=== PATIENT | female | born 1985 | race Caucasian/White ===

== ENCOUNTER 2024-01-15 19:31 | Emergency (ER) | payer OTHER, SELFPAY ==
[2024-01-15 19:38] VITALS: BP 119/83
[2024-01-15 19:58] LABS: Urine Albumin Negative (Neg - Trace); Urine Bilirubin Negative (Negative); Urine Character Clear (Clear); Urine Color Yellow; Urine Glucose Negative (Negative); Urine Ketone Negative (Negative); Urine Leukocyte Trace (Negative); Urine Nitrite Negative (Negative); Urine Occult Blood Negative (Negative); Urine Urobilinogen Negative (Neg - 1+); Urine pH 6.5 (5.0-9.0)
[2024-01-15 19:59] LABS: % Basophils 0.1 % (0-2); % Eosinophils 4.3 % (0-6); % Immature Granulocytes 0.3 % (0-0.5); % Lymphocytes 26.8 % (20.5-51.1); % Monocytes 8.2 % (1.7-9.3); % Neutrophils 60.3 % (42.2-75.2); Absolute Eosinophils 0.4 10^3/uL (0-0.7); Absolute Lymphocytes 2.4 10^3/uL (1.2-3.4); Absolute Monocytes 0.7 10^3/uL (0.1-0.6); Absolute Neutrophils 5.3 10^3/uL (1.4-6.5); Hematocrit 34.7 % (37.0-47.0); Mean Corp Hgb Conc. 34.6 g/dL (33.0-37.0); Mean Corpuscular Hgb 28.9 pg (27.0-31.0); Mean Corpuscular Volume 83.6 fL (81.0-99.0); Mean Platelet Volume 8.5 fL (7.4-10.4); Nucleated Red Blood Cells % 0 %; Platelet Count 409 10^3/uL (130-400); Red Blood Cell Count 4.15 10^6/uL (4.20-5.40); Red Cell Dist. Width 13.5 % (11.5-14.5); White Blood Cell Count 8.8 10^3/uL (4.8-10.8)
[2024-01-15 20:07] LABS: Urine Red Blood Cell None Seen /HPF (0-2)
[2024-01-15 20:24] LABS: HCG, Serum Qualitative Screen Positive
[2024-01-15 20:32] LABS: ALT (SGPT) 20 U/L (0-35); AST (SGOT) 29 U/L (14-36); Albumin 4.2 g/dl (3.5-5.0); Alkaline Phosphatase 67 U/L (38-126); Blood Urea Nitrogen 15 mg/dl (7-17); Calcium 9.3 mg/dl (8.4-10.2); Carbon Dioxide 26 mmol/L (22-30); Chloride 100 mmol/L (98-107); Glucose 103 mg/dl (70-99); Sodium 132 mmol/L (135-145); Total Bilirubin 0.2 mg/dl (0.2-1.3); Total Protein 7.1 g/dl (6.3-8.2); eGFR > 60.00
[2024-01-15 23:38] VITALS: BP 113/76
--- NOTE | 2024-01-15 23:47 | ED.GENMED ---
History of Present Illness
General
Chief Complaint: Problems
Source: patient
Exam Limitations: none
Time Seen by Provider: 01/15/24 23:16
Nursing documentation reviewed up to this point in time: agreed with
Travel History
Have you had any contact with someone who has COVID-19?: No
Do you have any symptoms of coronavirus? Fever > 100 degrees, chills, cough, shortness of breath, sore throat, loss of taste or smell, muscle aches, or headache?: No
History of Present Illness
History of Present Illness:
Patient is a 38-year-old female who is 1 para 0 and presents for possible related issues. Approximately 5 days ago the patient had a slight fever and a home test was positive. Patient went to the [facility] and they
confirmed that the patient was and she had an ultrasound which showed a 8-1/2 weeks sac but no pole. Patient states she thought she was about 8 weeks . Patient has had issues with getting in the past. Patient has
been having a low-grade temperature to 100.1 has felt somewhat dizzy and lightheaded. Patient denies any abdominal pain, cramping or vaginal bleeding. Patient has been taking Tylenol. Patient denies any nasal congestion, sore throat or cough.
Patient denies any chest pain or shortness of breath. Patient denies any nausea, vomiting or diarrhea. Patient denies any symptoms. Patient has an appointment with scruff worker in 3 days.
Past History
Past History
ED Past Medical History: Psychiatric (Anxiety, depression)
ED Past Surgical History: None
Social History
Tobacco: Non-smoker
Review of Systems
Review of Systems
All Other Systems: ROS reviewed and negative except as documented in HPI and ROS
Constitutional: Reports fever and fatigue; Denies chills
EENT: Reports no symptoms
Respiratory: Reports no symptoms
Cardiac: Reports no symptoms
ABD/GI: Reports no symptoms
: Reports no symptoms
Musculoskeletal: Reports no symptoms
Skin: Reports no symptoms
Neurological: Reports no symptoms
Hematologic/Lymphatic: Reports no symptoms
Phy Exam
Physical Exam
Physical Exam:
Physical Exam
General: No apparent distress, alert and appropriate, well nourished, well hydrated
HENT: Normocephalic, supple with no lymphadenopathy, no thyromegaly
Eyes: Clear sclera, conjuctiva without injection
Heart: Regular rhythm and rate. No S3, S4. No murmur.
Lungs: No respiratory distress, no stridor, lung sounds clear and equal bilaterally
Abdomen: Soft, nontender, no organomegaly, no CVA tenderness, BS good
Neuro: Alert and oriented x 3, CN II - XII intact, no motor focality, no cerebellar dysfunction
Skin: no rash
Psychiatric: well kept. interactive and cooperative
Extremities: No edema, cyanosis, tenderness, Good and equal peripheral pulses.
Scores
Heart Failure Risk
Heart Failure Risk Score: Not Applicable
Heart Score for Chest Pain Patients
STEMI patient?: Not applicable
Withdrawal Assessment of Alcohol
Withdrawal Assessment Completed?: Not applicable
Course
Orders/Labs/Results
Orders:
Orders
01/15/24 19:44
Test Result ONCE
01/15/24 19:51
Complete Blood Count/With Diff Urgent
Comprehensive Metabolic Panel Urgent
HCG, Beta Quantitative [Beta HCG Quantitative] Urgent
Is this a screen?: No
HCG, Serum Qualitative Screen Urgent
Urinalysis Reflex To Culture Urgent
Date Specimen was Collected: 01/15/24
Time Specimen was Collected: 19:44
Urine Microscopic Reflex Cult Urgent
01/15/24 23:53
COVID-19 Antigen Urgent
Source: Nasal Swab
Influenza A+B Rapid Molecular Urgent
LARRY Source: Nasal Swab
Specimen Description:
01/16/24 00:00
US 1st Trimester Urgent
Reason For Exam: CONCERN FOR FAILED PREG; LMP 10/16
Abnormal Lab Results
01/15/24
19:51
RBC 4.15 L 10^6/uL
(4.20-5.40)
Hct 34.7 L %
(37.0-47.0)
Plt Count 409 H 10^3/uL
(130-400)
Absolute Monos (auto) 0.7 H 10^3/uL
(0.1-0.6)
Sodium 132 L mmol/L
(135-145)
Creatinine 0.5 L mg/dL
(0.6-1.0)
Glucose 103 H mg/dl
(70-99)
Leukocyte Esterase Rfl Trace A
(Negative)
01/15/24 19:51
01/15/24 19:51
Vital Signs
Initial and Last Documented VS:
Initial Vital Signs
Temp Pulse Resp BP Pulse Ox
98.3 F 100 20 119/83 16
01/15/24 19:38 01/15/24 19:38 01/15/24 19:38 01/15/24 19:38 01/15/24 19:38
Last Documented Vital Signs
Temp Pulse Resp BP Pulse Ox
98.3 F 90 16 113/76 100
01/15/24 23:38 01/15/24 23:38 01/15/24 23:38 01/15/24 23:38 01/15/24 23:38
Information
Weeks gestation: Weeks: (8)
Location: Location: ([facility])
*Radiology
Radiology exam reviewed: radiology read reviewed (Blighted ovum )
*Pulse Oximetry
Patient hypoxic: no
*EKG
Interpreted by ED Provider?: NA
*Mammal Control Agent Interpretation
Rate: Mammal Control Agent- N/A
*Critical Care Note
Total Time (30-74mins, 75-104mins- exclusive of procedures): Not Applicable
Update Note
Update Note:
Given the patient reportedly has had a low-grade fever there is no white blood cell count and no tenderness or pain. Patient referred to OB.
ED Attending Note
-
Portions of this chart may have been created with voice recognition software.� Occasional wrong word or��sound alike� substitutions may have occurred due to the inherent limitations of voice recognition software.
Discharge Plan
Departure
Patient Disposition: Home (Routine Discharge)
Date of Disposition: 01/16/24
Time of Disposition: 01:58
Patient with high blood pressure during this ER visit?: No
Condition: Fair
Covid-19: Not Applicable
Discharge Problem:
Blighted ovum
Instructions: Miscarriage (DC)
Referrals:
Kathy Price MD [Family Provider] - As needed
Scott Merchant MD [Active] - Follow up in 2-3 days
Interventions
Interventions:
*Risk Screen - Suicide Last Done: 01/16/24 02:19
*General Assessment Last Done: 01/16/24 02:19
*Neglect/Abuse Screening Last Done: 01/16/24 02:19
ED- Fall Risk Assessment Last Done: 01/15/24 23:38
*ED COVID-19 Vaccine History Last Done: 01/15/24 19:38
*Nursing Disposition Last Done: 01/16/24 02:19
ED-Female Genitourinary Assessment Last Done: 01/15/24 23:38
Discharge Date and Time
Discharge Date/Time: 01/16/24 02:20
Print Language: TONGAN
[2024-01-16 00:32] LABS: COVID-19 Antigen Negative (Negative)
--- NOTE | 2024-01-16 01:49 | EDRN ---
Dr. Valentin at bedside going over results with patient
== END 2024-01-16 02:20 | disposition home or self-care (01) ==
LOC: EMR 19:31
PROVIDERS: Physician Assistant; EMERGENCY PHYSICIAN Emergency Medicine; FAMILY PHYSICIAN Obstetrics & Gynecology
DX: O02.0 Blighted ovum and nonhydatidiform mole (principal); Z3A.08 8 weeks gestation of pregnancy; Z11.52 Encounter for screening for COVID-19
CPT/HCPCS: 99284; 76801; 80053; 81003; 81015; 84702; 84703; 85025; 87502; 87811

== ENCOUNTER 2024-01-18 06:28 | Day surgery (SDC) | payer OTHER, SELFPAY ==
[2024-01-18] VITALS (15 sets, daily range): BP systolic 101–117; BP diastolic 69–82; BMI 22.3
[2024-01-18] MEDS: NORMOSOL-R 1000 IV (09:11)
[2024-01-18] MEDS: HYPERRHO S-D 1500 UNIT IM (12:54)
== END 2024-01-18 14:07 | disposition home or self-care (01) ==
LOC: SDS 06:28
PROVIDERS: ATTENDING PHYSICIAN Obstetrics & Gynecology
DX: O02.1 Missed abortion (principal)
CPT/HCPCS: 59820; 88305; 86850; 86900; 86901; J2790